=== PATIENT | female | born 2000 | race Caucasian/White ===

== ENCOUNTER 2025-03-10 03:12 | Emergency (ER) | payer OTHER, SELFPAY ==
[2025-03-10 03:18] VITALS: BP 111/69; PULSE 97; RESP 14; TEMP 36.9; O2SAT 99
--- NOTE | 2025-03-10 03:32 | ED.URI ---
HPI - URI/Sore Throat General Chief Complaint: Upper Respiratory Infection Stated Complaint: flu like symptoms and left ear popped Time Seen by Provider: 03/10/25 03:15 History of Present Illness HPI Narrative: 24-year-old otherwise healthy female presenting to the emergency room with upper respiratory infection symptoms and left ear pain. She states that today while she was coughing hard she felt like her left ear popped and now she is having some painful sensations are left ear, around the auricle and pain with palpation. No trismus or jaw pain. Does have a sensation of some hearing loss but not fully. No history of otitis, no history of tympanostomies or any surgical procedures in this area. States that her upper respiratory infection symptoms are mild otherwise. Thinks she may have caught COVID or flu. Related Data Allergies Allergy/AdvReac Type Severity Reaction Status Date / Time No Known Allergies Allergy Mild Verified 05/04/24 13:28 Review of Systems Review of Systems: As reviewed above in HPI PMFSH Past Medical History Medical History Recurrent UTI (urinary tract infection) Family History Family History Father Diabetes mellitus Grandparent Acute myocardial infarction maternal grandmother Other Graves disease Social History Social History Smoking status: Never smoker Alcohol intake: current Drinks per week: 1 Substance use: current Substance use type: marijuana Other substance usage details: weekends Lack of Transportation: No Lack of Food: Never True Current Housing: I Have Housing Concerned About Future Housing: No Difficulty Paying Gas/Electric Bills: No Difficulty Paying for Meds: No Currently Unemployed: No Education: Associate Degree Difficulty w/ Childcare or Family Care: No Living arrangements: other Additional living arrangements comments: lives with boyfriend Occupation/Education: occupation 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 No tenderness over the mastoid process, no lymphadenopathy. No trismus. Contralateral TM is clear without any signs of infection or effusion. NECK: Supple. CHEST: [Clear to auscultation. No respiratory distress.] HEART: [Regular rate and rhythm]. No murmur heard. [Normal peripheral pulses.] ABDOMEN: [Soft, nondistended], [nontender], [No rigidity or guarding] EXTREMITIES: Normal range of motion. [No edema.] SKIN: Warm, dry, no rash. NEURO: [No focal deficits]. Alert and oriented [x3.] PSYCH: [Normal mood and affect.] Course Vital Signs Vital signs: Vital Signs Temperature 36.9 C 03/10/25 03:18 Pulse Rate 97 03/10/25 03:18 Respiratory Rate 14 03/10/25 03:18 Blood Pressure 111/69 03/10/25 03:18 Pulse Oximetry 99 03/10/25 03:18 Temperature 36.9 C 03/10/25 03:18 Pulse Rate 97 03/10/25 03:18 Respiratory Rate 14 03/10/25 03:18 Blood Pressure 111/69 03/10/25 03:18 Pulse Oximetry 99 03/10/25 03:18 MDM - URI/Sore Throat MDM Narrative Medical decision making narrative: 24-year-old female presenting to the ER for evaluation of upper respiratory infection symptoms that started since Saturday with a sensation of ear fullness, muffled hearing and pain in her left ear that started after a harsh coughing episode. Differential includes otitis media, otitis externa, perforated otitis, viral syndrome, upper respiratory infection. Her tympanic membrane does appear erythematous and bulging with infusion, no overlying skin changes, no pain with manipulation of the auricle or pinna and no signs of tympanic membrane perforation. No a tightest externa. Normal vital signs she is afebrile. Viral panel swabs were obtained and she was provided treatment for otitis media with ibuprofen for pain and amoxicillin/clavulanate. Patient will be prescribed Augmentin for the next 5 days and safely discharged home with PCP follow-up. Medical Records Attestation: I reviewed the patient's medical records. Lab Data Attestation: I reviewed the patient's lab results. Discharge Plan Discharge Clinical Impression: Otitis media, Upper respiratory infection Patient Disposition: Home Condition: Stable Instructions: Antibiotic Form, Ear Infection (ED) Additional Instructions: Your left ear has a middle ear infection that does not look complicated and the tympanic membrane is intact. If you have any worsening symptoms such as worsening hearing loss, leakage of fluids or pus/blood of your, headache, intractable fevers or any other concerns return to the ER otherwise complete your antibiotic course and take Tylenol and ibuprofen for any aches or pains. Patient Language: [place] Prescriptions: New amoxicillin-pot clavulanate 875-125 mg tablet 1 tablet PO Q12H 7 Days Qty: 14 0RF No Action sertraline 50 mg tablet 50 mg PO DAILY Qty: 90 1RF norgestimate-ethinyl estradiol [Tri-Sprintec (28)] 0.18/0.215/0.25 mg-35 mcg (28) tablet 1 tablet PO DAILY Qty: 84 3RF Follow-up/Referrals: Jose,MD Saad [Primary Care Provider] - Time of Disposition: 03:38
[2025-03-10] MEDS: IBUPROFEN 600 MG TABLET PO (03:45)
[2025-03-10] MEDS: AMOXICILLIN/CLAVULANATE K 875-125 MG TAB 1 TABLET PO (03:45)
[2025-03-10 03:49] VITALS: O2SAT 99
[2025-03-10 04:10] LABS: Influenza A QL RT-PCR Negative (Negative); Influenza B QL RT-PCR Negative (Negative); RSV RNA, RT-PCR Negative (Negative); SARS-CoV-2 RNA PCR Negative (Negative)
== END 2025-03-10 03:55 | disposition home or self-care (01) ==
LOC: ANHED 03:50
PROVIDERS: Emergency Provider Student in an Organized Health Care Education/Training Program; PCP Internal Medicine
DX: H66.92 Otitis media, unspecified, left ear (principal); J06.9 Acute upper respiratory infection, unspecified; Z20.822 Contact with and (suspected) exposure to COVID-19; Z87.440 Personal history of urinary (tract) infections
CPT/HCPCS: 87637; 99283; A9270

== ENCOUNTER 2025-09-19 10:36 | Emergency (ER) | payer OTHER, SELFPAY ==
--- NOTE | 2025-09-19 10:40 | ED_ITS ---
HPI - Eye Problem General Chief complaint: Eye Problems Stated complaint: Left Eye Problem Time Seen by Provider: 09/19/25 10:40 Source: patient Mode of arrival: ambulatory Limitations: no limitations History of Present Illness HPI Narrative: Cassandra is a 24-year-old female patient presenting to the clinic today with complaints of left eye swelling, crusting, and blurry vision x1 day. Reports the vision is no longer blurry but did have some increased swelling and crusting this morning. Has had some white discharge coming from the eye. Denies any eye injury or any foreign body in the left eye. Related Data Allergies Allergy/AdvReac Type Severity Reaction Status Date / Time No Known Allergies Allergy Mild Verified 09/19/25 10:52 Review of Systems Review of Systems: Pertinent positives per HPI. Patient denies any fever, chills, rash, headache, visual changes, dizziness, cough, shortness of breath, chest pain, palpitations, nausea, vomiting, diarrhea, constipation, abdominal pain, or any urinary issues. [facility] Past Medical History Medical History Recurrent UTI (urinary tract infection) Family History Family History Father Diabetes mellitus Grandparent Acute myocardial infarction maternal grandmother Other Graves disease Social History Social History Second hand tobacco smoke exposure: No Alcohol intake: current Drinks per week: 1 Substance use: current Substance use type: marijuana Other substance usage details: weekends Do You Feel Safe in your Home?: Yes Lack of Transportation: No Lack of Food: Never True Current Housing: I Have Housing Concerned About Future Housing: No Difficulty Paying Gas/Electric Bills: No Difficulty Paying for Meds: No Currently Unemployed: No Education: Associate Degree Difficulty w/ Childcare or Family Care: No Living arrangements: other Additional living arrangements comments: lives with boyfriend Occupation/Education: occupation 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 There is no relevant family history pertinent to the patient complaint. Exam Narrative: General: Well-developed, well nourished, in no apparent distress Head: Normocephalic, atraumatic Eyes: Pupils equally round and reactive to light bilaterally, EOM intact, right sclera and conjunctive clear, no discharge, lids normal, left sclera and conjunctiva injected with white crusty discharge, lids mildly swollen, wearing glasses, visual acuity noted Ears: TMs intact and clear, ear canals clear, no drainage, grossly hearing normal. Nose: Nares patent, no discharge, no inflammation, no sinus tenderness. Mouth: Oral pharynx without lesions or masses, good dentition, MMM. Neck: Supple, trachea midline, no enlargement of anterior or posterior cervical nodes, no thyroid masses or goiter palpable. Cardio: Regular rate and rhythm, s1 and s2 normal, no murmur appreciated. Resp: Clear to auscultation bilaterally, no rhonchi, rales, wheezing or rubs Course Course Emergency Course: Portions of this record may have been created with voice recognition software. Level of Care: Express Care Visit Vital Signs Vital signs: Vital Signs Temperature 36.2 C L 09/19/25 10:47 Pulse Rate 62 09/19/25 10:47 Respiratory Rate 18 09/19/25 10:47 Blood Pressure 99/57 L 09/19/25 10:47 Pulse Oximetry 100 09/19/25 10:47 Oxygen Delivery Room Air 09/19/25 10:47 Temperature 36.2 C L 09/19/25 10:47 Pulse Rate 62 09/19/25 10:47 Respiratory Rate 18 09/19/25 10:47 Blood Pressure 99/57 L 09/19/25 10:47 Pulse Oximetry 100 09/19/25 10:47 Oxygen Delivery Room Air 09/19/25 10:47 Vital signs reviewed MDM - Eye Problem MDM Narrative Medical decision making narrative: At the time of visit patient is resting comfortably on the exam table. Patient appears to be nontoxic. Complaints of left eye swelling, crusting, and blurry vision x1 day. Reports the vision is no longer blurry but did have some increased swelling and crusting this morning. Has had some white discharge coming from the eye. Denies any eye injury or any foreign body in the left eye. On exam patient has ejected sclera and conjunctive of the left eye with white crusting discharge. Plan: I suspect patient has left conjunctivitis. Prescription for ofloxacin eyedrops was sent to the pharmacy as patient does use contacts. Supportive measures were discussed with the patient and they voiced understanding discharge instructions and agrees to treatment plan. Return precautions reviewed Differential Diagnosis Differential diagnosis: Likely corneal abrasion, conjunctivitis, acute iritis, hyphema, periorbital cellulitis, subconjunctival hemorrhage, glaucoma, corneal ulcer and ruptured globe Discharge Plan Discharge Clinical Impression: Bacterial conjunctivitis Patient Disposition: Home Condition: Stable Instructions: Antibiotic Form, Conjunctivitis (ED) Additional Instructions: Conjunctivitis is considered contagious for 24 hours while on the antibiotic. Change your contacts as discussed Practice good hand washing techniques Avoid touching eyes- ofloxacin Instill eyedrops as prescribed May use warm moist washcloth to help remove eye discharge If eyes are matted shut-do not pry eyes open-use a warm moist cloth to loosen matting and wipe matter away from eye May take Tylenol/Motrin as needed for pain or fever May take Benadryl as needed for itching Follow-up with your PCP in 3-5 days if symptoms persist or sooner if they worsen Go to the emergency room if you develop any fever that is not controlled by Tylenol or Motrin, loss of vision, eye pain, increase eye swelling,visual changes, headache, confusion, lethargy, weakness, chest pain, or shortness of breath. Patient Language: Scottish Prescriptions: New ofloxacin 0.3 % drops See Rx Instructions .ROUTE .COMPLEX 7 Days Qty: 10 0RF Rx Instructions: put 1-2 drps into affected eye(s) every 2-4 h x 2 days, then 1-2 drps 4 times/day days 3-7 No Action norgestimate-ethinyl estradiol [Tri-Sprintec (28)] 0.18/0.215/0.25 mg-0.035mg (28) tablet 1 tablet PO DAILY Qty: 84 1RF Follow-up/Referrals: UNKNOWN,DOCTOR [Non-Staff] Stand Alone Forms: Work/School Release IP Time of Disposition: 11:00 Quality NIHSS Nursing Documentation ED NIHSS nursing documentation: reviewed/agree
[2025-09-19 10:47] VITALS: BP 99/57; PULSE 62; RESP 18; TEMP 36.2; O2SAT 100
== END 2025-09-19 11:05 | disposition home or self-care (01) ==
PROVIDERS: Emergency Provider Nurse Practitioner Family; PCP Internal Medicine
DX: H10.9 Unspecified conjunctivitis (principal); F12.90 Cannabis use, unspecified, uncomplicated
CPT/HCPCS: 99213; G0463